=== PATIENT | female | born 1930 | race Caucasian/White ===

== ENCOUNTER 2017-02-18 06:39 | Inpatient (IN) | payer OTHER, MEDICARE ==
[~2017-02-18] VITALS: Ht 154.9 cm; Wt 75.1 kg
[2017-02-18 07:25] LABS: HEMATOCRIT 31.5 % (36.0-46.0); MCH 29.3 PG (29.0-34.0); MCHC 32.7 G/DL (30.0-36.0); MCV 89.5 FL (83-99); MEAN PLAT.VOLUME 10.3 uM^3 (9.5-12.4); PLATELET COUNT 260 K/uL (156-360); RBC DIS.WIDTH-CV 13.2 % (11.8-14.6); RBC DIS.WIDTH-SD 43.4 % (39-53); RED BLOOD COUNT 3.52 M/uL (3.80-5.20); WHITE BLOOD COUNT 10.1 K/uL (4.1-10.2)
[2017-02-18 07:36] LABS: INTER. NORMALIZED RATIO 1.8; PROTHROMBIN TIME 18.9 (9.2-11.2); PTT 42.6 (25-32)
[2017-02-18] MEDS ORDERED: WARFARIN SODIUM3 MG PO (07:38)
[2017-02-18] MEDS ORDERED: FUROSEMIDE40 MG PO (07:40)
[2017-02-18] MEDS ORDERED: TAZTIA XT180 M1 PO (07:40)
[2017-02-18] MEDS ORDERED: METFORMIN HCL500 MG PO (07:40)
[2017-02-18] MEDS ORDERED: LOSARTAN POTAS100 MG PO (07:40)
[2017-02-18] MEDS ORDERED: ROSUVASTATIN CA40 MG PO (07:41)
[2017-02-18] MEDS ORDERED: CHLORTHALIDONE25 MG PO (07:42)
[2017-02-18] MEDS ORDERED: DOXAZOSIN MESYLA2 MG PO (07:42)
[2017-02-18 07:57] LABS: ANION GAP 11 MEQ/L (2-14); CHLORIDE 105 MEQ/L (99-109); GFR ESTIMATE (CALCULATED) 41 mL/min/; GLUCOSE 148 mg/dL (70-99); POTASSIUM 3.6 MEQ/L (3.7-5.4); SAMPLE HEMOLYSIS CHECK 0; SAMPLE ICTERIC CHECK 0; SAMPLE LIPEMIA CHECK 0; SODIUM 138 MEQ/L (136-147); UREA NITROGEN (BUN) 24 mg/dL (9-23)
[2017-02-18 07:58] LABS: TROP-I INTERPRETATION NEGATIVE; TROPONIN-I 0.04 ng/mL (0.0-0.30)
[2017-02-18] MEDS ORDERED: COUMADIN2 MG PO (09:26)
[2017-02-18 10:16] LABS: BASE EXCESS -3.1 mEq/L (-3 to +3); BICARBONATE 20.8 mEq/L (22-26); CARBOXY HGB 2.1 % (0-5); COMMENTS - BLOOD GASES NEG A+C+; DEVICE VENTURI; FI02 50 %; METHEMOGLOBIN 1.2 % (0-1.5); O2 FLOW 12 L/MIN; PCO2 32 mm Hg (35-45); PO2 49 mm Hg (80-100); SITE LR; TOTAL RESP RATE 24 resp/min; pH 7.42 (7.35-7.45)
[2017-02-18 14:46] LABS: TROP-I INTERPRETATION NEGATIVE; TROPONIN-I 0.05 ng/mL (0.0-0.30)
[2017-02-18 16:45] LABS: POINT-OF-CARE METER ID UU13113702
[2017-02-18 17:29] VITALS: BP 152/63
[2017-02-18 18:40] LABS: TROP-I INTERPRETATION NEGATIVE; TROPONIN-I 0.06 ng/mL (0.0-0.30)
[2017-02-18 20:45] VITALS: BP 144/72
[2017-02-18 21:32] LABS: POINT-OF-CARE METER ID UU14174216; POINT-OF-CARE USER ID NUTSLF44
[2017-02-19] VITALS (7 sets, daily range): BP systolic 114–129; BP diastolic 55–62
[2017-02-19 06:18] LABS: MCH 28.5 PG (29.0-34.0); MCHC 32.1 G/DL (30.0-36.0); MEAN PLAT.VOLUME 10.1 uM^3 (9.5-12.4); PLATELET COUNT 259 K/uL (156-360); RBC DIS.WIDTH-CV 13.5 % (11.8-14.6); RBC DIS.WIDTH-SD 43.7 % (39-53); RED BLOOD COUNT 3.26 M/uL (3.80-5.20)
[2017-02-19 06:26] LABS: INTER. NORMALIZED RATIO 1.7; PROTHROMBIN TIME 18.1 (9.2-11.2)
[2017-02-19 06:39] LABS: ANION GAP 14 MEQ/L (2-14); CHLORIDE 102 MEQ/L (99-109); GFR ESTIMATE (CALCULATED) 38 mL/min/; GLUCOSE 206 mg/dL (70-99); POTASSIUM 3.5 MEQ/L (3.7-5.4); SAMPLE HEMOLYSIS CHECK 0; SAMPLE ICTERIC CHECK 0; SAMPLE LIPEMIA CHECK 0; SODIUM 140 MEQ/L (136-147); UREA NITROGEN (BUN) 30 mg/dL (9-23)
[2017-02-19 08:07] LABS: POINT-OF-CARE METER ID UU14174216; POINT-OF-CARE USER ID ENVKC36
[2017-02-19 08:27] LABS: INTERNAL CONTROL VALID? YES
[2017-02-19 09:37] LABS: BASE EXCESS -0.6 mEq/L (-3 to +3); BICARBONATE 21.8 mEq/L (22-26); CARBOXY HGB 1.7 % (0-5); COMMENTS - BLOOD GASES A+C+; DEVICE HHFNC; FI02 90 %; METHEMOGLOBIN 1.7 % (0-1.5); O2 FLOW 50 L/MIN; PCO2 28 mm Hg (35-45); PO2 58 mm Hg (80-100); SITE RR; TOTAL RESP RATE 18 resp/min
[2017-02-19 11:11] LABS: INFLUENZA A VIRAL ANTIGEN NEGATIVE; INFLUENZA B VIRAL ANTIGEN NEGATIVE
[2017-02-19 11:51] LABS: POINT-OF-CARE USER ID ENVKC36
[2017-02-19 16:25] LABS: POINT-OF-CARE METER ID UU14174216; POINT-OF-CARE USER ID ENVKC36
[2017-02-19 21:08] LABS: POINT-OF-CARE METER ID UU14174216
[2017-02-20 03:30] VITALS: BP 135/56
[2017-02-20 06:23] LABS: INTER. NORMALIZED RATIO 2.6
[2017-02-20 06:33] LABS: EOSINOPHIL (%) 0 % (0-5); IMMATURE GRANULOCYTE (%) 0.8 % (0.0-0.7); IMMATURE GRANULOCYTE COUNT 0.1 K/uL; INSTRUMENT ABS NEUTROPHIL CT 10.4 K/uL; LYMPHOCYTE COUNT 0.4 K/uL (1.0-2.8); MCH 29.8 PG (29.0-34.0); MCHC 33.1 G/DL (30.0-36.0); MCV 90.1 FL (83-99); MEAN PLAT.VOLUME 10.3 uM^3 (9.5-12.4); MONOCYTE (%) 3.4 % (3-12); MONOCYTE COUNT 0.4 K/uL (0-0.8); NEUTROPHIL (%) 92.7 % (45-76); NEUTROPHIL COUNT 10.4 K/uL (1.8-6.4); PLATELET COUNT 266 K/uL (156-360); RBC DIS.WIDTH-CV 13.5 % (11.8-14.6); RBC DIS.WIDTH-SD 44.6 % (39-53); RED BLOOD COUNT 3.22 M/uL (3.80-5.20)
[2017-02-20 06:35] LABS: PROTHROMBIN TIME 26.8 (9.2-11.2)
[2017-02-20 06:37] LABS: WHITE BLOOD COUNT 11.3 K/uL (4.1-10.2)
[2017-02-20 06:44] LABS: ANION GAP 13 MEQ/L (2-14); CHLORIDE 105 MEQ/L (99-109); GFR ESTIMATE (CALCULATED) 27 mL/min/; GLUCOSE 209 mg/dL (70-99); MAGNESIUM 2.3 mg/dl (1.3-2.7); POTASSIUM 4.1 MEQ/L (3.7-5.4); SAMPLE HEMOLYSIS CHECK 0; SAMPLE ICTERIC CHECK 0; SAMPLE LIPEMIA CHECK 0; SODIUM 140 MEQ/L (136-147)
[2017-02-20 06:50] LABS: UREA NITROGEN (BUN) 46 mg/dL (9-23)
[2017-02-20 08:30] VITALS: BP 130/68
[2017-02-20 11:16] LABS: POINT-OF-CARE METER ID UU14174216
[2017-02-20 11:45] VITALS: BP 113/62
[2017-02-20 15:20] VITALS: BP 125/60
[2017-02-20 19:05] VITALS: BP 112/57
[2017-02-20 21:24] LABS: POINT-OF-CARE METER ID UU14174216
[2017-02-20 23:30] VITALS: BP 112/59
[2017-02-21 03:00] VITALS: BP 115/56
[2017-02-21 06:38] LABS: EOSINOPHIL (%) 0 % (0-5); HEMATOCRIT 28.9 % (36.0-46.0); IMMATURE GRANULOCYTE (%) 0.7 % (0.0-0.7); IMMATURE GRANULOCYTE COUNT 0.1 K/uL; INSTRUMENT ABS NEUTROPHIL CT 9.6 K/uL; LYMPHOCYTE COUNT 0.3 K/uL (1.0-2.8); MCH 29.9 PG (29.0-34.0); MCHC 33.6 G/DL (30.0-36.0); MCV 89.2 FL (83-99); MEAN PLAT.VOLUME 10.3 uM^3 (9.5-12.4); MONOCYTE (%) 4.3 % (3-12); MONOCYTE COUNT 0.5 K/uL (0-0.8); NEUTROPHIL (%) 92.1 % (45-76); NEUTROPHIL COUNT 9.6 K/uL (1.8-6.4); PLATELET COUNT 285 K/uL (156-360); RBC DIS.WIDTH-CV 13.7 % (11.8-14.6); RBC DIS.WIDTH-SD 44.6 % (39-53); RED BLOOD COUNT 3.24 M/uL (3.80-5.20); WHITE BLOOD COUNT 10.4 K/uL (4.1-10.2)
[2017-02-21 06:59] LABS: ANION GAP 14 MEQ/L (2-14); CHLORIDE 102 MEQ/L (99-109); GFR ESTIMATE (CALCULATED) 21 mL/min/; GLUCOSE 241 mg/dL (70-99); POTASSIUM 3.6 MEQ/L (3.7-5.4); SAMPLE HEMOLYSIS CHECK 0; SAMPLE ICTERIC CHECK 0; SAMPLE LIPEMIA CHECK 0; SODIUM 137 MEQ/L (136-147); UREA NITROGEN (BUN) 66 mg/dL (9-23)
[2017-02-21 07:14] LABS: PROTHROMBIN TIME 45.2 (9.2-11.2)
[2017-02-21 07:15] LABS: INTER. NORMALIZED RATIO 4.2
[2017-02-21 07:46] LABS: POINT-OF-CARE METER ID UU14174216
[2017-02-21 08:47] VITALS: BP 127/53
[2017-02-21 12:31] VITALS: BP 112/53
[2017-02-21 12:55] VITALS: BP 106/53
[2017-02-21 17:19] LABS: POINT-OF-CARE METER ID UU13113781
[2017-02-21 18:22] VITALS: BP 107/55
[2017-02-21 19:30] VITALS: BP 91/51
[2017-02-22 00:20] VITALS: BP 115/67
[2017-02-22 06:06] VITALS: BP 114/59
[2017-02-22 07:01] LABS: EOSINOPHIL (%) 0 % (0-5); HEMATOCRIT 27.4 % (36.0-46.0); IMMATURE GRANULOCYTE (%) 0.5 % (0.0-0.7); INSTRUMENT ABS NEUTROPHIL CT 8.2 K/uL; LYMPHOCYTE COUNT 0.3 K/uL (1.0-2.8); MCH 29.2 PG (29.0-34.0); MCHC 32.8 G/DL (30.0-36.0); MEAN PLAT.VOLUME 10.4 uM^3 (9.5-12.4); MONOCYTE (%) 3.5 % (3-12); MONOCYTE COUNT 0.3 K/uL (0-0.8); NEUTROPHIL (%) 92.4 % (45-76); NEUTROPHIL COUNT 8.2 K/uL (1.8-6.4); PLATELET COUNT 275 K/uL (156-360); RBC DIS.WIDTH-CV 13.6 % (11.8-14.6); RBC DIS.WIDTH-SD 44.5 % (39-53); RED BLOOD COUNT 3.08 M/uL (3.80-5.20); WHITE BLOOD COUNT 8.9 K/uL (4.1-10.2)
[2017-02-22 07:50] LABS: PROTHROMBIN TIME 54.8 (9.2-11.2)
[2017-02-22 07:54] LABS: INTER. NORMALIZED RATIO 5.1
[2017-02-22 07:57] LABS: ANION GAP 13 MEQ/L (2-14); CHLORIDE 103 MEQ/L (99-109); GFR ESTIMATE (CALCULATED) 21 mL/min/; GLUCOSE 236 mg/dL (70-99); POTASSIUM 4.6 MEQ/L (3.7-5.4); SAMPLE HEMOLYSIS CHECK 0; SAMPLE ICTERIC CHECK 0; SAMPLE LIPEMIA CHECK 0; SODIUM 136 MEQ/L (136-147); UREA NITROGEN (BUN) 74 mg/dL (9-23)
[2017-02-22 08:00] LABS: HEM NON-PRINT 2 NO CLOT
[2017-02-22 09:02] VITALS: BP 104/56
[2017-02-22 11:14] LABS: POINT-OF-CARE METER ID UU13113781
[2017-02-22 12:35] VITALS: BP 117/59
[2017-02-22 16:33] VITALS: BP 126/58
[2017-02-22 16:43] LABS: POINT-OF-CARE METER ID UU13113781
[2017-02-22 19:30] VITALS: BP 110/74
[2017-02-23 00:15] VITALS: BP 124/58
[2017-02-23 04:31] VITALS: BP 122/55
[2017-02-23 07:00] VITALS: BP 129/68
[2017-02-23 07:28] LABS: EOSINOPHIL (%) 0 % (0-5); HEMATOCRIT 27.8 % (36.0-46.0); IMMATURE GRANULOCYTE (%) 0.9 % (0.0-0.7); IMMATURE GRANULOCYTE COUNT 0.1 K/uL; INSTRUMENT ABS NEUTROPHIL CT 8.3 K/uL; LYMPHOCYTE COUNT 0.3 K/uL (1.0-2.8); MCH 29.5 PG (29.0-34.0); MCHC 32.7 G/DL (30.0-36.0); MCV 90.3 FL (83-99); MEAN PLAT.VOLUME 10.6 uM^3 (9.5-12.4); MONOCYTE (%) 4.6 % (3-12); MONOCYTE COUNT 0.4 K/uL (0-0.8); NEUTROPHIL (%) 91.5 % (45-76); NEUTROPHIL COUNT 8.3 K/uL (1.8-6.4); PLATELET COUNT 292 K/uL (156-360); RBC DIS.WIDTH-CV 13.8 % (11.8-14.6); RBC DIS.WIDTH-SD 45.6 % (39-53); RED BLOOD COUNT 3.08 M/uL (3.80-5.20); WHITE BLOOD COUNT 9.1 K/uL (4.1-10.2)
[2017-02-23 07:35] LABS: POINT-OF-CARE METER ID UU13113781
[2017-02-23 07:46] LABS: PROTHROMBIN TIME 21.1 (9.2-11.2)
[2017-02-23 07:58] LABS: ANION GAP 12 MEQ/L (2-14); CHLORIDE 105 MEQ/L (99-109); GFR ESTIMATE (CALCULATED) 27 mL/min/; GLUCOSE 299 mg/dL (70-99); IRON 72 MCG/DL (35-150); SAMPLE HEMOLYSIS CHECK 0; SAMPLE ICTERIC CHECK 0; SAMPLE LIPEMIA CHECK 0; SODIUM 138 MEQ/L (136-147); UREA NITROGEN (BUN) 78 mg/dL (9-23)
[2017-02-23 11:10] LABS: POINT-OF-CARE METER ID UU13113781
[2017-02-23 11:41] VITALS: BP 100/52
[2017-02-23 16:07] LABS: POINT-OF-CARE METER ID UU13113781
[2017-02-23 16:45] VITALS: BP 136/71
[2017-02-23 19:30] VITALS: BP 136/84
[2017-02-23 20:46] LABS: POINT-OF-CARE METER ID UU14174216
[2017-02-24] VITALS (7 sets, daily range): BP systolic 116–149; BP diastolic 55–76
[2017-02-24 06:40] LABS: INTER. NORMALIZED RATIO 1.6; PROTHROMBIN TIME 16.1 (9.2-11.2)
[2017-02-24 08:06] LABS: ANION GAP 7 MEQ/L (2-14); CHLORIDE 108 MEQ/L (99-109); GFR ESTIMATE (CALCULATED) 35 mL/min/; GLUCOSE 197 mg/dL (70-99); SAMPLE HEMOLYSIS CHECK 0; SAMPLE ICTERIC CHECK 0; SAMPLE LIPEMIA CHECK 0; SODIUM 138 MEQ/L (136-147); UREA NITROGEN (BUN) 71 mg/dL (9-23)
[2017-02-24 08:08] LABS: POINT-OF-CARE METER ID UU13113781; POINT-OF-CARE USER ID ENVKC36
[2017-02-24 08:09] LABS: POTASSIUM 3.9 MEQ/L (3.7-5.4)
[2017-02-24 11:52] LABS: POINT-OF-CARE METER ID UU14174216; POINT-OF-CARE USER ID ENVKC36
[2017-02-24 16:51] LABS: POINT-OF-CARE METER ID UU14174216
[2017-02-24 21:22] LABS: POINT-OF-CARE METER ID UU14174216
[2017-02-25 03:57] VITALS: BP 117/56
[2017-02-25 06:20] LABS: POINT-OF-CARE METER ID UU13113725
[2017-02-25 07:25] LABS: EOSINOPHIL (%) 0 % (0-5); HEMATOCRIT 30.1 % (36.0-46.0); IMMATURE GRANULOCYTE (%) 1.4 % (0.0-0.7); IMMATURE GRANULOCYTE COUNT 0.2 K/uL; INTER. NORMALIZED RATIO 1.5; LYMPHOCYTE COUNT 0.3 K/uL (1.0-2.8); MCHC 32.2 G/DL (30.0-36.0); MCV 89.9 FL (83-99); MEAN PLAT.VOLUME 10.5 uM^3 (9.5-12.4); MONOCYTE (%) 3.6 % (3-12); MONOCYTE COUNT 0.5 K/uL (0-0.8); NEUTROPHIL (%) 92.8 % (45-76); NRBC (%) 0.1 /100 WBC (0-0); PLATELET COUNT 281 K/uL (156-360); PROTHROMBIN TIME 15.9 (9.2-11.2); RBC DIS.WIDTH-CV 13.8 % (11.8-14.6); RBC DIS.WIDTH-SD 45.4 % (39-53); RED BLOOD COUNT 3.35 M/uL (3.80-5.20)
[2017-02-25 07:42] LABS: ANION GAP 8 MEQ/L (2-14); CHLORIDE 109 MEQ/L (99-109); GFR ESTIMATE (CALCULATED) 35 mL/min/; GLUCOSE 203 mg/dL (70-99); POTASSIUM 4.2 MEQ/L (3.7-5.4); SAMPLE HEMOLYSIS CHECK 0; SAMPLE ICTERIC CHECK 0; SAMPLE LIPEMIA CHECK 0; SODIUM 142 MEQ/L (136-147); UREA NITROGEN (BUN) 71 mg/dL (9-23)
[2017-02-25 07:56] VITALS: BP 128/68
[2017-02-25 11:49] LABS: POINT-OF-CARE METER ID UU13113725
[2017-02-25 15:00] VITALS: BP 142/68
[2017-02-25 23:38] VITALS: BP 122/58
[2017-02-26 07:43] LABS: ANION GAP 9 MEQ/L (2-14); CHLORIDE 110 MEQ/L (99-109); GFR ESTIMATE (CALCULATED) 35 mL/min/; GLUCOSE 217 mg/dL (70-99); POTASSIUM 4.2 MEQ/L (3.7-5.4); SAMPLE HEMOLYSIS CHECK 0; SAMPLE ICTERIC CHECK 0; SAMPLE LIPEMIA CHECK 0; SODIUM 142 MEQ/L (136-147); UREA NITROGEN (BUN) 69 mg/dL (9-23)
[2017-02-26 07:48] LABS: INTER. NORMALIZED RATIO 1.9; PROTHROMBIN TIME 19.3 (9.2-11.2)
[2017-02-26 08:00] LABS: EOSINOPHIL (%) 0 % (0-5); IMMATURE GRANULOCYTE (%) 1.3 % (0.0-0.7); IMMATURE GRANULOCYTE COUNT 0.3 K/uL; INSTRUMENT ABS NEUTROPHIL CT 17.2 K/uL; LYMPHOCYTE COUNT 0.3 K/uL (1.0-2.8); MCHC 32.3 G/DL (30.0-36.0); MCV 89.8 FL (83-99); MEAN PLAT.VOLUME 10.6 uM^3 (9.5-12.4); MONOCYTE (%) 3.8 % (3-12); MONOCYTE COUNT 0.7 K/uL (0-0.8); NEUTROPHIL COUNT 17.2 K/uL (1.8-6.4); NRBC (%) 0.1 /100 WBC (0-0); PLATELET COUNT 280 K/uL (156-360); RBC DIS.WIDTH-CV 13.9 % (11.8-14.6); RBC DIS.WIDTH-SD 45.8 % (39-53); RED BLOOD COUNT 3.34 M/uL (3.80-5.20)
[2017-02-26 08:03] LABS: WHITE BLOOD COUNT 18.5 K/uL (4.1-10.2)
[2017-02-26] MEDS ORDERED: MYCOPHENOLATE250 MG PO (09:44)
[2017-02-26] MEDS ORDERED: NOVOLOG PE100 UNITS/ SC (09:44)
[2017-02-26] MEDS ORDERED: LIDOCAINE700 MG TD (09:45)
[2017-02-26] MEDS ORDERED: LEVEMIR100 UNIT/2 SC (09:46)
[2017-02-26] MEDS ORDERED: PROTONIX40 MG PO (09:47)
[2017-02-26] MEDS ORDERED: PREDNISONE10 MG PO (09:47)
[2017-02-26 11:41] LABS: POINT-OF-CARE METER ID UU13113725
[2017-02-26] MEDS ORDERED: OXYCODONE HCL5 MG PO (11:55)
== END 2017-02-26 12:50 | DRG 291 ==
LOC: EME 06:39 → EDOF 10:25 → 4EAST 10:25 → 5EAST 02-24 22:23
PROVIDERS: Emergency Medicine; Internal Medicine; Internal Medicine Nephrology
DX: I50.9 Heart failure, unspecified (principal); J96.01 Acute respiratory failure with hypoxia; J44.1 Chronic obstructive pulmonary disease with (acute) exacerbation; J18.9 Pneumonia, unspecified organism; J81.1 Chronic pulmonary edema; J44.9 Chronic obstructive pulmonary disease, unspecified; E78.5 Hyperlipidemia, unspecified; N17.9 Acute kidney failure, unspecified; I27.2 Other secondary pulmonary hypertension; E11.65 Type 2 diabetes mellitus with hyperglycemia; E11.22 Type 2 diabetes mellitus with diabetic chronic kidney disease; I13.0 Hypertensive heart and chronic kidney disease with heart failure and stage 1 through stage 4 chronic kidney disease, or unspecified chronic kidney disease; J90 Pleural effusion, not elsewhere classified; I51.7 Cardiomegaly; I25.10 Atherosclerotic heart disease of native coronary artery without angina pectoris; I34.0 Nonrheumatic mitral (valve) insufficiency; I35.0 Nonrheumatic aortic (valve) stenosis; M54.5 Low back pain; I48.2 Chronic atrial fibrillation; G89.29 Other chronic pain; N18.3 Chronic kidney disease, stage 3 (moderate); Z85.3 Personal history of malignant neoplasm of breast; Z79.01 Long term (current) use of anticoagulants; Z68.31 Body mass index [BMI] 31.0-31.9, adult
CPT/HCPCS: 36600; 71010; 71275; 76770; 80048; 82803; 82948; 83540; 83605; 83735; 83880; 84466; 84484; 85025; 85027; 85610; 85730; 87040; 87070; 87205; 87449; 87502; 93005; 93306; 93308; 94010; 94640; 94640 76; 94667; 94668; 94760; 94799; 99202; 99281; 99285; J0456; J0692; J0696; J1815; J1940; J2270; J2405; J2930; J7030; J7050; J7512; J7517